=== PATIENT | female | born 1945 | race Two or more races ===

== ENCOUNTER → 2016-12-15 | Outpatient (CLI) | payer MEDICARE ==
[~2016-12-15] MED LIST: REGADENOSON 0.4 MG/5 ML SYRINGE ONE
== END | disposition home or self-care (01) ==
LOC: RAD 09:32
PROVIDERS: ATTEND Internal Medicine Cardiovascular Disease
DX: I47.2 Ventricular tachycardia (principal); I10 Essential (primary) hypertension
CPT/HCPCS: 78452; 93017; A9502; J2785

== ENCOUNTER → 2019-06-08 | Outpatient (CLI) | payer MEDICARE ==
[~2019-06-08] MED LIST changes: +ASPI-496 PO; +CARB1TAB4 PO; +ESCI10TA10 PO; +IRBE75TA6 PO; +LIDOCAINE-MPF 1%, 5ML ONE; +METF500T17 PO; +METO-95 PO; +MULT-658 PO; -REGADENOSON 0.4 MG/5 ML SYRINGE ONE; +ROSU40TA PO; +magnesium PO
== END | disposition home or self-care (01) ==
LOC: RAD 14:26
PROVIDERS: ATTEND Surgery
DX: C50.811 Malignant neoplasm of overlapping sites of right female breast (principal); I10 Essential (primary) hypertension; E78.5 Hyperlipidemia, unspecified; G20 Parkinson's disease; F06.4 Anxiety disorder due to known physiological condition; Z79.82 Long term (current) use of aspirin; Z79.84 Long term (current) use of oral hypoglycemic drugs; Z79.899 Other long term (current) drug therapy; Z85.3 Personal history of malignant neoplasm of breast; Z92.21 Personal history of antineoplastic chemotherapy; Z95.0 Presence of cardiac pacemaker; Z98.890 Other specified postprocedural states; Z80.0 Family history of malignant neoplasm of digestive organs
CPT/HCPCS: 38792; A9541

== ENCOUNTER 2019-06-09 06:24 | Day surgery (SDC) | payer MEDICARE ==
[~2019-06-09] VITALS: Ht 160 cm; Wt 71.0 kg
[~2019-06-09 06:24] MED LIST changes: -LIDOCAINE-MPF 1%, 5ML ONE
[2019-06-09 07:04] VITALS: BP 121/77
[2019-06-09] MEDS ORDERED: LACTATED RINGERS 1,000 ML IV SCH (07:07)
[2019-06-09] MEDS ORDERED: FENTANYL PF 100 MCG/2ML ONE ×2 (07:36→11:21)
[2019-06-09] MEDS ORDERED: MIDAZOLAM 1 MG/ML, 2ML ONE (07:36)
[2019-06-09 08:03] LABS: ALANINE AMINOTRANSFERASE < 6 U/L (12-78); ALBUMIN 3.6 g/dL (3.4-5.0); ANION GAP 6 mmol/L (5-15); CALCIUM 9.2 mg/dL (8.5-10.1); CHLORIDE 108 mmol/L (98-107); CREATININE 0.73 mg/dL (0.55-1.02)
[2019-06-09 08:05] LABS: ALKALINE PHOSPHATASE 76 U/L (45-117); BILIRUBIN,TOTAL 0.4 mg/dL (0.2-1.0); TOTAL PROTEIN 6.8 g/dL (6.4-8.2)
[2019-06-09] MEDS ORDERED: ISOSULFAN BLUE 10 MG/ML, 5ML IV ONE (08:27)
[2019-06-09] MEDS ORDERED: BUPIVACAINE/PF-EPI 0.5% 1:200K ONE (08:27)
[2019-06-09] MEDS ORDERED: ONDANSETRON 2MG/ML, 2ML ONE (09:12)
[2019-06-09] MEDS ORDERED: PROPOFOL 10 MG/ML, 20ML ONE (09:12)
[2019-06-09] MEDS ORDERED: NEOSTIGMINE 1 MG/ML, 10ML ONE (09:12)
[2019-06-09] MEDS ORDERED: ROCURONIUM 10 MG/ML,10ML ONE (09:12)
[2019-06-09] MEDS ORDERED: GLYCOPYRROLATE 0.2MG/1ML, 5ML ONE (09:12)
[2019-06-09] MEDS ORDERED: CEFAZOLIN 1,000 MG ONE (09:12)
[2019-06-09] MEDS ORDERED: DEXAMETHASONE 4 MG/ML, 1ML ONE (09:12)
[2019-06-09] MEDS ORDERED: HYDROcodone/APAP 7.5-325MG/15ML UDC ONE (11:21)
[2019-06-09] MEDS ORDERED: HYDROmorphone 2 MG/ML, 1ML IVPush PRN (11:30)
[2019-06-09] MEDS ORDERED: ACETAMINOPHEN 325 MG TABLET PO PRN (11:30)
[2019-06-09] MEDS ORDERED: OXYcodone 5 MG/5 ML ORAL.SOL UDC PO PRN (11:30)
[2019-06-09] MEDS ORDERED: MEPERIDINE/PF 25MG/ML,1ML IVPush PRN (11:30)
[2019-06-09] MEDS ORDERED: FENTANYL PF 100 MCG/2ML IV PRN (11:30)
[2019-06-09] MEDS ORDERED: LORazepam 2 MG/ML, 1ML IVPush PRN (11:30)
[2019-06-09] MEDS ORDERED: HYDROcodone/APAP 7.5-325MG/15ML UDC PO ONE (11:30)
[2019-06-09] MEDS ORDERED: LABETALOL 5MG/ML, 20ML IV PRN (11:30)
[2019-06-09] MEDS ORDERED: KETOROLAC 30 MG/1 ML IV PRN (11:30)
[2019-06-09] MEDS ORDERED: ONDANSETRON 2MG/ML, 2ML IV PRN (11:30)
[2019-06-09] MEDS ORDERED: hydrALAzine 20 MG/ML, 1ML IV PRN (11:30)
== END 2019-06-09 15:00 | disposition home or self-care (01) ==
LOC: OUT 06:24
PROVIDERS: ATTEND Surgery
DX: C50.811 Malignant neoplasm of overlapping sites of right female breast (principal); I10 Essential (primary) hypertension; E78.5 Hyperlipidemia, unspecified; G20 Parkinson's disease; F06.4 Anxiety disorder due to known physiological condition; Z79.82 Long term (current) use of aspirin; Z79.84 Long term (current) use of oral hypoglycemic drugs; Z79.899 Other long term (current) drug therapy; Z85.3 Personal history of malignant neoplasm of breast; Z92.21 Personal history of antineoplastic chemotherapy; Z95.0 Presence of cardiac pacemaker; Z98.890 Other specified postprocedural states; Z80.0 Family history of malignant neoplasm of digestive organs
CPT/HCPCS: 19303; 38525; 80053; 82962; 88305; 88307; 88333; 93005; C1729; J0690; J1100; J2250; J2405; J2704; J2710; J3010; J7120